=== PATIENT | female | born 1990 | race Two or more races ===

== ENCOUNTER 2018-08-14 04:18 | Inpatient (IN) | payer OTHER ==
[~2018-08-14] VITALS: Ht 157.5 cm; Wt 66.7 kg
[2018-08-14] MEDS ORDERED: PRENATAL TABLE1 EAC3 PO (04:44)
== END 2018-08-17 13:08 | disposition home or self-care (01) | DRG 807 ==
LOC: OBS/DEL 04:18 → LDR 06:03 → OBS/DEL 06:03 → OB/GYN 06:03
PROC: 10E0XZZ Delivery of Products of Conception, External Approach (ICD-10-PCS; principal; 2018-08-15)
PROC: 0HQ9XZZ Repair Perineum Skin, External Approach (ICD-10-PCS; 2018-08-15)
PROC: 3E033VJ Introduction of Other Hormone into Peripheral Vein, Percutaneous Approach (ICD-10-PCS; 2018-08-15)
PROC: 4A033R1 Measurement of Arterial Saturation, Peripheral, Percutaneous Approach (ICD-10-PCS; 2018-08-15)
DX: O70.0 First degree perineal laceration during delivery (principal); Z37.0 Single live birth; Z3A.39 39 weeks gestation of pregnancy

== ENCOUNTER 2020-11-26 12:15 | Inpatient (IN) | payer OTHER ==
[~2020-11-26] VITALS: Ht 152.4 cm; Wt 68.9 kg
[~2020-11-26 12:15] MED LIST: PRENATAL TABLE1 EAC3 PO
== END 2020-12-05 14:04 | disposition home or self-care (01) | DRG 807 ==
LOC: OB/GYN 12-02 21:54 → LDR 12-02 21:54 → OB/GYN 12-03 05:03 → LDR 12-07 12:15
PROVIDERS: ADMIT Obstetrics & Gynecology; ATTEND Obstetrics & Gynecology
PROC: 4A1HXFZ Monitoring of Products of Conception, Cardiac Rhythm, External Approach (ICD-10-PCS; 2020-12-02)
PROC: 10E0XZZ Delivery of Products of Conception, External Approach (ICD-10-PCS; principal; 2020-12-03)
PROC: 0HQ9XZZ Repair Perineum Skin, External Approach (ICD-10-PCS; 2020-12-03)
DX: O70.0 First degree perineal laceration during delivery (principal); Z37.0 Single live birth; O99.824 Streptococcus B carrier state complicating childbirth; Z3A.39 39 weeks gestation of pregnancy